=== PATIENT | male | born 1995 | race Two or more races ===

== ENCOUNTER 2018-12-29 09:57 | Emergency (ER) | payer SELFPAY ==
[~2018-12-29] VITALS: Ht 167.6 cm; Wt 84.4 kg
[2018-12-29 10:05] VITALS: BP 130/86
[2018-12-29] MEDS ORDERED: BACI3.5O8 OS (10:17)
[2018-12-29] MEDS ORDERED: METH4TAB2 PO (10:17)
[2018-12-29] MEDS ORDERED: CEPH-264 PO (10:17)
--- NOTE | 2018-12-29 10:17 | PHYS DOC ---
Adult General Chief Complaint Chief Complaint: SKIN PROBLEM HPI HPI Patient is a 23 year old Male who presents with first construction around concrete and the last couple weeks he has gotten an itchy contact dermatitis rash to his hands and then it spread to his left wrist. Patient also has a open nickel-sized wound to the left chin. Patient states is very itchy. Does not look to be any drainage. Denies any fevers. Patient states it does burn. Patient states he does not wear gloves when he is working. Review of Systems Review of Systems Integument: rash or skin lesions [] All other systems were reviewed and found to be within normal limits, except as documented in this note. Physical Exam Physical Exam Constitutional: Well developed, well nourished, no acute distress, non-toxic appearance. [] Skin: Warm, dry, no erythema, bilateral subtle hand rash and left chin nickel- sized open wound. [] Extremities: No tenderness, no cyanosis, no clubbing, ROM intact, no edema. [] Neurologic: Alert and oriented X 3, normal motor function, normal sensory function, no focal deficits noted. [] Psychologic: Affect normal, judgement normal, mood normal. [] EKG EKG [] Radiology/Procedures Radiology/Procedures [] Course & Med Decision Making Course & Med Decision Making Contact dermatitis to bilateral dorsal hands and a nickel sized opened red wound to the left chin. No drainage. Afebrile. Skin otherwise pink warm and dry. Alert and oriented. Dragon Disclaimer Dragon Disclaimer This electronic medical record was generated, in whole or in part, using a voice recognition dictation system. Departure Departure Impression: Primary Impression: Contact dermatitis Disposition: 01 HOME, SELF-CARE Condition: STABLE Referrals: NO PCP (PCP) Patient Instructions: Contact Dermatitis Additional Instructions: Follow up with a primary care provider. Use medications as prescribed. Scripts Bacitracin (BACITRACIN) 3.5 Gm Oint...g. 1 ABI OS TID, #3.5 GM Prov: MALINA BLACKWELL APRN 12/29/18 Cephalexin (KEFLEX) 500 Mg Capsule 1 CAP PO TID for 7 Days, #21 CAP 0 Refills Prov: MALINA BLACKWELL APRN 12/29/18 Methylprednisolone (MEDROL) 4 Mg Tab.ds.pk 1 PKG PO UD, #1 PKG Prov: MALINA BLACKWELL APRN 12/29/18 Problem Qualifiers Primary Impression: Contact dermatitis Contact dermatitis type: unspecified Contact dermatitis trigger: unspecified trigger Qualified Codes: L25.9 - Unspecified contact dermatitis, unspecified cause MALINA BLACKWELL APRN Dec 29, 2018 10:17
== END 2018-12-29 10:25 | disposition home or self-care (01) ==
LOC: ER 09:57
DX: S01.80XA Unspecified open wound of other part of head, initial encounter (principal); L25.9 Unspecified contact dermatitis, unspecified cause; X58.XXXA Exposure to other specified factors, initial encounter; Y93.89 Activity, other specified; Y92.89 Other specified places as the place of occurrence of the external cause; Y99.8 Other external cause status
CPT/HCPCS: 99283